=== PATIENT | male | born 1975 | race Caucasian/White ===

== ENCOUNTER 2018-07-16 10:08 | Emergency (ER) | payer SELFPAY | END 2018-07-16 10:43 | disposition home or self-care (01) | LOC: NAV ERS 10:08 | DX: M25.531 Pain in right wrist (principal); Z79.891 Long term (current) use of opiate analgesic; Z79.899 Other long term (current) drug therapy | CPT/HCPCS: 99281 ==

== ENCOUNTER 2018-07-19 10:06 | Outpatient (CLI) | payer OTHER ==
--- NOTE | 2018-07-19 10:20 | RAD ---
RIGHT WRIST 3 VIEWS: HISTORY: Right wrist pain FINDINGS: No acute fracture or dislocation is identified. If symptoms do not improve, a follow-up exam should be obtained in 7-10 days.
== END 2018-07-19 10:07 | disposition home or self-care (01) ==
LOC: NAV RAD 10:06
PROVIDERS: ATTEND Nurse Practitioner Adult Health
DX: M25.531 Pain in right wrist (principal)

== ENCOUNTER 2020-11-08 19:36 | Emergency (ER) | payer SELFPAY ==
[2020-11-08] MEDS ORDERED: Ondansetron ODT 4 MG TAB ONE (20:18)
[2020-11-08] MEDS ORDERED: cefTRIAXone\\ROCEPHIN 2 GM VIAL ONE (21:16)
[2020-11-08 21:23] LABS: Band 4 % (5-11); Eosinophils 5 % (0-10); Hemoglobin 13.1 g/dL (14.0-18.0); Lymphocytes 27 % (21-51); MDiff Complete? YES; Mean Corpuscular HGB CONC 31.7 g/dL (32.0-36.0); Mean Corpuscular Hemoglobin 26.9 pg (27.0-31.0); Mean Corpuscular Volume 84.7 fL (78.0-98.0); Mean Platelet Volume 6.1 fL (7.4-10.4); Metamyelocyte 1 % (0-0); Monocytes 4 % (0-10); Neutrophil 59 % (42-75); Platelet Count 208 thou/uL (130-400); Platelet Morphology Comment Appears Adequate; RBC Distribution Width 12.3 % (11.5-14.5); RBC Morphology Normal; Red Blood Cell (RBC) Count 4.89 mill/uL (4.70-6.10); White Blood Cell (WBC) Count 4.3 thou/uL (4.8-10.8)
[2020-11-08 21:32] LABS: ALT (SGPT) 73 U/L (8-55); AST (SGOT) 76 U/L (5-34); Albumin 3.8 g/dL (3.5-5.0); Alkaline Phosphatase 290 U/L (40-110); Anion Gap 17 mmol/L (10-20); BUN (Urea Nitrogen) 19 mg/dL (8.9-20.6); Bilirubin, Total 0.8 mg/dL (0.2-1.2); Calc. Creatinine Clearance 0 mL/min (70-130); Calcium 9.2 mg/dL (7.8-10.44); Carbon Dioxide 23 mmol/L (22-29); Chloride 103 mmol/L (98-107); Globulin 3.9 g/dL (2.4-3.5); Glucose 94 mg/dL (70-105); Lipase 20 U/L (8-78); Potassium 3.7 mmol/L (3.5-5.1); Protein, Total 7.7 g/dL (6.0-8.3); Sodium 139 mmol/L (136-145)
[2020-11-08 21:53] LABS: Bilirubin Small (Negative); Blood, Urine Negative (Negative); Clarity Clear (Clear); Glucose, Urine (Dipstick) Negative (Negative); Ketone, Urine Negative (Negative); Leukocyte Negative (Negative); Nitrite Negative (Negative); Protein, Urine (Dipstick) 30 mg/dL (Neg-Trace); Specific Gravity, Urine 1.025 (1.005-1.030); pH, Urine 5.5 (5.0-9.0)
[2020-11-08 22:03] LABS: Bacteria/HPF Rare-Few HPF (None Seen); RBC/HPF None Seen HPF (0-3); Squamous Epithelial None Seen HPF (0-3); WBC/HPF 0-3 HPF (0-3)
[2020-11-09] MEDS ORDERED: Sodium Chloride 0.9% 500 ML ONE (00:23)
[2020-11-09] MEDS ORDERED: diphenhydrAMINE 25 MG CAP ONE (00:29)
[2020-11-09 01:10] LABS: Lactic Acid 1.5 mmol/L (0.5-2.2)
[2020-11-09 16:00] LABS: SARS-CoV-2 PCR by NAA DETECTED (NotDetected)
== END 2020-11-09 01:40 | disposition home or self-care (01) ==
LOC: NAV ERS 19:36
DX: U07.1 COVID-19 (principal); J12.82 Pneumonia due to coronavirus disease 2019; R74.01 Elevation of levels of liver transaminase levels
CPT/HCPCS: 36415; 71045; 80053; 81003; 81015; 83605; 83690; 84484; 85025; 96365; J0696; J7030; Q0162; Q0163; U0003; U0005